=== PATIENT | female | born 1945 | race Caucasian/White ===

== ENCOUNTER 2017-01-06 20:25 | Inpatient (IN) | payer MEDICARE ==
[2017-01-06] MEDS ORDERED: IPRATROPIUM-ALBUTEROL 3 ML NEB INHALATION STA (21:11)
[2017-01-06] MEDS ORDERED: methylPREDNISolone SOD SUCCI 125 MG/2 ML VIAL IV STA (21:23)
[2017-01-06] MEDS ORDERED: SODIUM CHLORIDE 0.9% 1,000 ML IV STA (21:23)
--- NOTE | 2017-01-06 21:58 | ED ---
General Adult HPI - General Chief complaint: Shortness of Breath Stated complaint: SOB Time Seen by Provider: 01/06/17 21:21 Source: patient, family, RN notes reviewed, old records reviewed Mode of arrival: wheelchair Limitations: no limitations - History of Present Illness Initial comments: This is a 71-year-old female ER for evaluation of shortness of breath. Patient does have significant shortness of breath cough and congestion. Is a history of smoking and COPD. Patient denies any history of high blood pressure heart disease. Patient states 3 days of worsening shortness of breath cough and congestion and no improvement and at home breathing treatments. Patient denies any significant specific fevers, no chest pain. Patient's symptoms are severely worsened with exertion. She denies lower extremity edema. Denies shortness of breath when she lays down, didn't denies waking up in the middle night was source of breath. - Related Data Home Medications Medication Instructions Recorded Confirmed Albuterol Sulfate [Proair Hfa] 1 puff INHALATION RT-Q4H PRN 01/06/17 01/06/17 Ascorbic Acid [Vitamin C] 1,000 mg PO DAILY 01/06/17 01/06/17 Aspirin 325 mg PO DAILY 01/06/17 01/06/17 Calcium Carbonate [Calcium] 600 mg PO DAILY 01/06/17 01/06/17 Cyanocobalamin (Vitamin B-12) 2,000 mcg PO DAILY 01/06/17 01/06/17 [Vitamin B-12] Ipratropium-Albuterol Nebulize 3 ml INHALATION RT-QID 01/06/17 01/06/17 [Duoneb 0.5 mg-3 mg/3 ml Soln] Subsalicylate 262mg 2 tab PO BID PRN 01/06/17 01/06/17 guaiFENesin-DM 600/30MG [Mucinex 1 tab PO Q12HR PRN 01/06/17 01/06/17 Dm] Allergies Allergy/AdvReac Type Severity Reaction Status Date / Time No Known Allergies Allergy Verified 01/06/17 22:05 Review of Systems ROS Statement: Those systems with pertinent positive or pertinent negative responses have been documented in the HPI. ROS Other: All systems not noted in ROS Statement are negative. Past Medical History Past Medical History: COPD History of Any Multi-Drug Resistant Organisms: None Reported Past Surgical History: Tubal Ligation Past Psychological History: No Psychological Hx Reported Smoking Status: Former smoker Past Alcohol Use History: None Reported Past Drug Use History: None Reported General Exam Limitations: no limitations General appearance: alert, in no apparent distress, anxious Head exam: Present: atraumatic, normocephalic, normal inspection Eye exam: Present: normal appearance, PERRL, EOMI. Absent: scleral icterus, conjunctival injection, periorbital swelling ENT exam: Present: normal exam, mucous membranes moist Neck exam: Present: normal inspection. Absent: tenderness, meningismus, lymphadenopathy Respiratory exam: Present: respiratory distress, wheezes, accessory muscle use, decreased breath sounds, prolonged expiratory. Absent: rales, rhonchi, stridor Cardiovascular Exam: Present: regular rate, normal rhythm, normal heart sounds. Absent: systolic murmur, diastolic murmur, rubs, gallop, clicks GI/Abdominal exam: Present: soft, normal bowel sounds. Absent: distended, tenderness, guarding, rebound, rigid Extremities exam: Present: normal inspection, full ROM, normal capillary refill. Absent: tenderness, pedal edema, joint swelling, calf tenderness Back exam: Present: normal inspection Neurological exam: Present: alert, oriented X3, CN II-XII intact Psychiatric exam: Present: normal affect, normal mood Skin exam: Present: warm, dry, intact, normal color. Absent: rash Course Vital Signs 01/06/17 01/06/17 01/06/17 20:41 21:12 21:13 Temperature 98.2 F Pulse Rate 94 88 Respiratory 26 H 26 H Rate Blood Pressure 163/89 O2 Sat by Pulse 95 Oximetry 01/06/17 21:25 Temperature Pulse Rate 91 Respiratory Rate Blood Pressure O2 Sat by Pulse Oximetry - Reevaluation(s) Reevaluation #1: 01/06/17 22:41 Patient did have minimal improvement after first breathing treatment 01/06/17 22:41 Patient much better improvement in breathing after second breathing treatment EKG Findings - EKG Comments: EKG Findings:: EKG shows normal sinus a rate of 92, GA 122, QRS 84, QTc 450 Medical Decision Making - Medical Decision Making 71 female ear with multifactorial hypoxic respiratory failure including underlying COPD and new onset heart failure. Patient will be admitted for cardiac observation as well as continued breathing treatments and steroids - Lab Data Result diagrams: 01/06/17 20:51 01/06/17 20:51 Lab Results 01/06/17 01/06/17 01/06/17 Range/Units 20:51 20:51 20:51 WBC 6.3 (3.8-10.6) k/uL RBC 4.30 (3.80-5.40) m/uL Hgb 12.9 (11.4-16.0) gm/dL Hct 41.2 (34.0-46.0) % MCV 95.8 (80.0-100.0) fL MCH 30.1 (25.0-35.0) pg MCHC 31.4 (31.0-37.0) g/dL RDW 14.3 (11.5-15.5) % Plt Count 192 (150-450) k/uL Neutrophils % 63 % Lymphocytes % 22 % Monocytes % 9 % Eosinophils % 4 % Basophils % 0 % Neutrophils # 4.0 (1.3-7.7) k/uL Lymphocytes # 1.4 (1.0-4.8) k/uL Monocytes # 0.6 (0-1.0) k/uL Eosinophils # 0.3 (0-0.7) k/uL Basophils # 0.0 (0-0.2) k/uL Hypochromasia Slight PT 10.0 (9.0-12.0) sec INR 1.0 (<1.1) APTT 21.8 L (22.0-30.0) sec Sodium 143 (137-145) mmol/L Potassium 4.5 (3.5-5.1) mmol/L Chloride 108 H (98-107) mmol/L Carbon Dioxide 26 (22-30) mmol/L Anion Gap 9 mmol/L BUN 26 H (7-17) mg/dL Creatinine 0.90 (0.52-1.04) mg/dL Est GFR (MDRD) Af Amer >60 (>60 ml/min/1.73 sqM) Est GFR (MDRD) Non-Af >60 (>60 ml/min/1.73 sqM) Glucose 92 (74-99) mg/dL Calcium 8.7 (8.4-10.2) mg/dL Total Bilirubin 0.4 (0.2-1.3) mg/dL AST 69 H (14-36) U/L ALT 51 (9-52) U/L Alkaline Phosphatase 79 (38-126) U/L Total Protein 6.5 (6.3-8.2) g/dL Albumin 3.6 (3.5-5.0) g/dL - Radiology Data Radiology results: report reviewed (Chest x-ray does show pulmonary interstitial edema, heart failure), image reviewed Critical Care Time Critical Care Time: Yes Total Critical Care Time: 31 Disposition Clinical Impression: Congestive heart failure, Acute pulmonary edema, Acute exacerbation of chronic obstructive airways disease Disposition: ADMITTED IP TO THIS [facility] Condition: Serious Referrals: Nonstaff,Physician [Primary Care Provider] - 1-2 days
[2017-01-06 22:22] LABS: Basophils % (A) 0 %; CH 29.7; CHCM 31.2; Eosinophils # (A) 0.3 k/uL (0-0.7); Eosinophils % (A) 4 %; HCT 41.2 % (34.0-46.0); HDW 2.63; HGB 12.9 gm/dL (11.4-16.0); Hypochromasia Slight; Luc # (Auto) 0.12; Luc % (Auto) 2; Lymphocytes # (A) 1.4 k/uL (1.0-4.8); Lymphocytes % (A) 22 %; MCH 30.1 pg (25.0-35.0); MCHC 31.4 g/dL (31.0-37.0); MCV 95.8 fL (80.0-100.0); Mean Platelet Volume 8.7; Monocytes # (A) 0.6 k/uL (0-1.0); Monocytes % (A) 9 %; Neutrophils % (A) 63 %; RDW 14.3 % (11.5-15.5); WBC 6.3 k/uL (3.8-10.6); WBC (Perox) 5.85
--- NOTE | 2017-01-06 22:22 | XR ---
EXAMINATION TYPE: XR chest 2V DATE OF EXAM: 01/06/2017 10:11 PM COMPARISON: NONE HISTORY: Difficulty breathing TECHNIQUE: Frontal and lateral views of the chest are obtained. FINDINGS: There is blunting of costophrenic angles. There is pulmonary interstitial edema. Heart siz e is normal. There is slight blunting of costophrenic angles. IMPRESSION: Pulmonary interstitial edema and small pleural effusions is consistent with acute heart failure. There could be underlying pulmonary interstitial fibrosis. Atheromatous aorta.
[2017-01-06 22:23] LABS: ALT 51 U/L (9-52); AST 69 U/L (14-36); Alkaline Phosphatase 79 U/L (38-126); Anion Gap 9 mmol/L; Blood Urea Nitrogen 26 mg/dL (7-17); Calcium 8.7 mg/dL (8.4-10.2); Carbon Dioxide 26 mmol/L (22-30); Chloride 108 mmol/L (98-107); Glucose 92 mg/dL (74-99); Non-African American GFR(MDRD) >60 (>60 ml/min/1.73 sqM); Potassium 4.5 mmol/L (3.5-5.1); Sodium 143 mmol/L (137-145); Total Bilirubin 0.4 mg/dL (0.2-1.3); Total Protein 6.5 g/dL (6.3-8.2)
[2017-01-06 22:33] LABS: Partial Thromboplastin Time 21.8 sec (22.0-30.0)
[2017-01-06] MEDS ORDERED: ALBUTEROL NEBULIZED 2.5 MG/3 ML INHALATION STA ×2 (22:34→22:35)
[2017-01-06] MEDS ORDERED: AZITHROMYCIN 500 MG in SODIUM CHLORIDE 0.9% 250 ML IVPB STA (22:34)
[2017-01-06] MEDS ORDERED: IPRATROPIUM 0.5 MG/2.5 ML NEBU INHALATION STA (22:34)
[2017-01-06] MEDS ORDERED: ASPIRIN 81 MG CHEW PO STA (22:42)
[2017-01-06] MEDS ORDERED: NITROGLYCERIN SL TABS 0.4 MG TAB SUBLINGUAL PRN (22:42)
[2017-01-06 22:59] LABS: Troponin I 0.023 ng/mL (0.000-0.034)
[2017-01-06] MEDS: IPRATROPIUM-ALBUTEROL 3 ML NEB INHALATION SCH ×2 (23:01→23:06)
[2017-01-06 23:21] LABS: Creatine Kinase MB 3.2 ng/mL (0.0-2.4)
[2017-01-07] MEDS: SODIUM CHLORIDE 0.9% 1,000 ML IV SCH ×2 (00:51→22:01)
[2017-01-07] MEDS: IPRATROPIUM-ALBUTEROL 3 ML NEB INHALATION SCH ×6 (03:08→23:46)
[2017-01-07 03:29] LABS: Cholesterol 160 mg/dL (<200); HDL Cholesterol 73 mg/dL (40-60); Triglycerides 56 mg/dL (<150)
[2017-01-07 04:04] LABS: Troponin I 0.017 ng/mL (0.000-0.034)
[2017-01-07 04:13] LABS: Creatine Kinase MB 3.1 ng/mL (0.0-2.4)
[2017-01-07] MEDS: ACETAMINOPHEN TAB 325 MG TAB PO PRN ×3 (05:24→20:51)
[2017-01-07] MEDS: FUROSEMIDE 10 MG/ML 4 ML VIAL IV SCH (05:24)
[2017-01-07 06:50] LABS: Glucose,Whole Blood 200 mg/dL (75-99)
[2017-01-07] MEDS: INSULIN LISPRO (humaLOG) 300 UNIT/3 ML VIAL SQ SCH ×4 (07:06→20:52)
[2017-01-07] MEDS: methylPREDNISolone SOD SUCCI 125 MG/2 ML VIAL IV SCH ×4 (07:25→22:58)
[2017-01-07] MEDS: ASPIRIN 325 MG TAB PO SCH (08:11)
[2017-01-07] MEDS ORDERED: ENOXAPARIN 40 MG/0.4 ML SYRINGE SQ SCH (09:00)
[2017-01-07 09:35] LABS: Troponin I 0.012 ng/mL (0.000-0.034)
[2017-01-07 09:52] LABS: Creatine Kinase MB 2.7 ng/mL (0.0-2.4)
[2017-01-07 11:27] LABS: Hemoglobin A1C 6.8 % (4.2-6.1)
[2017-01-07 11:46] LABS: Glucose,Whole Blood 189 mg/dL (75-99)
--- NOTE | 2017-01-07 15:01 | ECHOF ---
Referral Reason:chf MEASUREMENTS -------- HEIGHT: 162.6 cm WEIGHT: 68.0 kg BP: 153/86 IVSd: 1.3 cm (0.6 - 1.1) LVIDd: 2.6 cm (3.9 - 5.3) LVPWd: 1.8 cm (0.6 - 1.1) IVSs: 2.1 cm LVIDs: 1.1 cm LVPWs: 2.6 cm Ao Diam: 2.4 cm (2.0 - 3.7) AV Cusp: 0.9 cm (1.5 - 2.6) LA Diam: 3.6 cm (2.7 - 3.8) MV EXCURSION: 21.171 mm (> 18.000) MV EF SLOPE: 95 mm/s (70 - 150) EPSS: 0.7 cm MV E Richard: 1.15 m/s MV DecT: 255 ms MV A Richard: 0.97 m/s MV E/A Ratio: 1.19 AV maxP.32 mmHg AV meanP.85 mmHg RAP: 5.00 mmHg RVSP: 41.94 mmHg FINDINGS -------- Sinus rhythm. This was a technically good study. There is moderate concentric left ventricular hypertrophy. Overall left ventricular systolic function is normal with, an EF between 55 - 60 %. The right ventricle is normal in size and function. The left atrium is normal in size. The right atrium is normal in size. Aortic valve is trileaflet and is severely thickened. There is fvijjykm-ru-frlvhx aortic stenosis present. Peak/mean gradient across the Aortic Valve is 65.32mmHg / 39.85mmHg. The mitral valve leaflets are mildly thickened. Mild mitral annular calcification present. Moderate mitral regurgitation is present , predominately a posteriorly directed jet. Mild tricuspid regurgitation present. The right ventricular systolic pressure, as measured by Doppler, is 41.94mmHg. Pulmonic valve appears structurally normal. The aortic root size is normal. The pericardium is normal. CONCLUSIONS -------- 1. Sinus rhythm. 2. Peak/mean gradient across the Aortic Valve is 65.32mmHg / 39.85mmHg. 3. The mitral valve leaflets are mildly thickened. 4. Mild mitral annular calcification present. 5. Moderate mitral regurgitation is present. 6. , predominately a posteriorly directed jet. 7. Mild tricuspid regurgitation present. 8. The right ventricular systolic pressure, as measured by Doppler, is 41.94mmHg. 9. Pulmonic valve appears structurally normal. 10. The aortic root size is normal. 11. The pericardium is normal. 12. This was a technically good study. 13. There is moderate concentric left ventricular hypertrophy. 14. Overall left ventricular systolic function is normal with, an EF between 55 - 60 %. 15. The right ventricle is normal in size and function. 16. The left atrium is normal in size. 17. The right atrium is normal in size. 18. Aortic valve is trileaflet and is severely thickened. 19. There is vsysnbse-fq-ruqnwl aortic stenosis present. LUMP RECEIVER: Miriam Vasquez RDCS
--- NOTE | 2017-01-07 15:39 | CONS ---
DATE OF CONSULTATION: This is a 71-year-old lady who has a past history of smoking, COPD, lives in [place]. She is here visiting her son. She came into the hospital brought in by family with complaints of increasing shortness of breath for the past 2 to 3 days, some amount of cough, but she did not have any chest discomfort. She does not have any palpitations, syncope or near syncope. She has apparently home oxygen, is a past smoker who quit nearly 2 years ago and uses home oxygen 24 hours a day. She denies any chest pain at the time of my evaluation. She is resting comfortably without symptoms. She does not have any history of hypertension, diabetes, myocardial infarction or CVA. Past history is remarkable for smoking, COPD on home oxygen. ALLERGIES: NONE. Medications include albuterol inhaler, vitamin supplements and inhaler. A chest x-ray revealed interstitial edema with small pleural effusion type pictures. Cannot exclude underlying fibrosis. Laboratory data revealed that her troponins were unremarkable and the BNP was modestly elevated at 2180. Lipid profile was normal. There was no elevation of any white count. On examination, blood pressure is 118/70, pulse rate is 80 per minute, regular. HEENT: Unremarkable. Fundus was not examined by me. Neck is supple. I cannot appreciate any significant JVD. There is no carotid bruit. Heart exam reveals S1, S2 with ejection systolic murmur at the base, second heart sound is preserved. Lungs are clear with decent air entry. Abdomen is soft, nontender. Lower extremities reveal diminished pulses. No edema. Central nervous system is normal. EKG revealed sinus mechanism, minor nonspecific ST changes. Laboratory data revealed normal troponin, borderline elevation of BNP. IMPRESSION: 1. Probable acute bronchitis. 2. I do not believe we are dealing with any significant heart failure. 3. History of chronic obstructive pulmonary disease on home oxygen. RECOMMENDATIONS: I agree with the antibiotic that has been initiated. I am suggesting that we continue the steroids and antibiotics and I will review the echocardiogram and make further recommendations. I would not recommend any aggressive diuresis at this time. I will also check a room air O2 saturation even though she is on home oxygen. I discussed my thoughts in detail with the patient and family. Thank you very much for the consult.
[2017-01-07 16:42] LABS: Glucose,Whole Blood 140 mg/dL (75-99)
--- NOTE | 2017-01-07 16:44 | HP ---
DATE OF ADMISSION: DATE OF SERVICE: 01/07/2017 CHIEF COMPLAINT: Difficulty in breathing. HISTORY OF PRESENT ILLNESS: Ms. Ramirez is a 71-year-old female with the past medical history of COPD, coming into the hospital with a chief complaint of difficulty in breathing. The patient states for the past 3 to 4 weeks she has been progressively getting short of breath and was also complaining of swelling of her lower extremities. The patient says that she has history of smoking and was recently diagnosed with COPD and she is on 2 L of home oxygen. The patient states that she required more oxygen and she turned it up to 3 L and still it was not helping her so she came into the hospital for further evaluation. Patient states that she was treated for a sinus infection recently in the first week of November with antibiotics and she was feeling better after that but for the past one week her symptoms have been progressively worsening. Patient denies having any complaints of orthopnea, PND, chest pain. She does not have any past medical history of coronary artery disease. REVIEW OF SYSTEMS: CONSTITUTIONAL: Denies having any fever, chills or rigors. RESPIRATORY: Positive for difficulty in breathing. No cough. No sputum production. GI: No abdominal pain, nausea, vomiting, or diarrhea. : No dysuria or hematuria. HEMATOLOGICAL: No history of easy bruising or recurrent infections. MUSCULOSKELETAL: No joint swelling. No joint pains or aches. ENDOCRINE: Denies having any hair loss, muscle pains or heat or cold intolerance. NEUROLOGICAL: Patient denies having any focal weakness, headache, loss of consciousness. PSYCHIATRIC: Denies having any symptoms of depression. All 13 review of systems are done and negative except for ones mentioned in the HPI. PAST MEDICAL HISTORY: Significant for COPD. PAST SURGICAL HISTORY: Tubal ligation. PAST SOCIAL HISTORY: Former smoker, quit few months back. FAMILY HISTORY: Positive for coronary artery disease, psoriasis, interstitial cystitis. ALLERGIES: No known drug allergies. PATIENT'S HOME MEDICATIONS; She is on: 1. Aspirin 325 mg p.o. daily. 2. Subsalicylate 262 mg 2 tablets p.o. b.i.d. 3. Mucinex 1 pill p.o. b.i.d. 4. Vitamin B12 supplements. 5. Ascorbic acid supplements. 6. Albuterol inhalations. 7. Calcium carbonate 600 mg p.o. daily. ON EXAMINATION: VITAL SIGNS: Temperature 97.1, heart rate 86, respiratory rate 18, blood pressure 117/71, saturating at 93% on 3 L of oxygen. GENERAL EXAMINATION: Patient appears to be in no acute distress. HEAD: Atraumatic, nontraumatic. EYES: Pupils round and reactive to light. NECK: No JVD. No thyromegaly. CARDIOVASCULAR: S1, S2 heard. No additional sounds. RESPIRATORY: Patient has decreased breath sounds in all lung zhou with few crackles at the lower lung bases. GI: Abdomen is soft, nontender. No organomegaly. Bowel sounds are positive. EXTREMITIES: No edema. No cyanosis. No clubbing. Peripheral pulses are felt. CREDIT DEPARTMENT MANAGER: Alert, awake, oriented x3. No focal neurological deficits. PSYCHIATRIC: Appropriate mood and affect. SKIN: No rash. MUSCULOSKELETAL: No joint swelling or deformity. PATIENT'S LABS: White count is 6.3, hemoglobin is 12.9, platelets of 192. Sodium 143, potassium 4.5, chloride 108, bicarb 26, BUN 26, creatinine 0.90. Troponin 0.023, 0.017. 0.01. Patient did have a chest x-ray which is positive for pulmonary interstitial edema and small pleural effusion consistent with acute heart failure. ASSESSMENT AND PLAN: 1. Shortness of breath secondary to pulmonary edema. 2. Acute exacerbation of chronic obstructive airway disease. 3. History of chronic obstructive pulmonary disease. PLAN: As the patient had chest x-ray which is consistent with pulmonary edema, we will go ahead and get an echo to see if she has any underlying heart failure. Patient to be continued on IV Lasix. Will continue with the rest of her home medication regimen and further recommendations to follow depending on the progress of the patient.
[2017-01-07 20:40] LABS: Glucose,Whole Blood 215 mg/dL (75-99)
[2017-01-08] MEDS: FUROSEMIDE 10 MG/ML 4 ML VIAL IV SCH (03:52)
[2017-01-08] MEDS: IPRATROPIUM-ALBUTEROL 3 ML NEB INHALATION SCH ×5 (03:56→21:07)
[2017-01-08] MEDS: ACETAMINOPHEN TAB 325 MG TAB PO PRN ×3 (04:09→20:20)
[2017-01-08 05:46] LABS: Glucose,Whole Blood 171 mg/dL (75-99)
[2017-01-08] MEDS: INSULIN LISPRO (humaLOG) 300 UNIT/3 ML VIAL SQ SCH ×4 (06:06→21:15)
[2017-01-08] MEDS: methylPREDNISolone SOD SUCCI 125 MG/2 ML VIAL IV SCH ×4 (06:06→23:15)
[2017-01-08 06:57] LABS: Anion Gap 7 mmol/L; Blood Urea Nitrogen 30 mg/dL (7-17); Calcium 8.9 mg/dL (8.4-10.2); Carbon Dioxide 25 mmol/L (22-30); Chloride 105 mmol/L (98-107); Glucose 180 mg/dL (74-99); Non-African American GFR(MDRD) >60 (>60 ml/min/1.73 sqM); Potassium 4.9 mmol/L (3.5-5.1); Sodium 137 mmol/L (137-145)
[2017-01-08 06:59] LABS: Basophils % (A) 0 %; CH 29.3; CHCM 31.1; Eosinophils % (A) 0 %; HCT 38.8 % (34.0-46.0); HDW 2.66; HGB 12.1 gm/dL (11.4-16.0); Hypochromasia Slight; Luc # (Auto) 0.07; Luc % (Auto) 1; Lymphocytes % (A) 8 %; MCH 29.6 pg (25.0-35.0); MCHC 31.2 g/dL (31.0-37.0); MCV 94.8 fL (80.0-100.0); Mean Platelet Volume 8.3; Monocytes # (A) 0.3 k/uL (0-1.0); Monocytes % (A) 3 %; Neutrophils # (A) 11.3 k/uL (1.3-7.7); Neutrophils % (A) 89 %; RBC 4.09 m/uL (3.80-5.40); RDW 13.9 % (11.5-15.5); WBC 12.7 k/uL (3.8-10.6); WBC (Perox) 12.72
[2017-01-08] MEDS ORDERED: RX INFO: IV CONTRAST WAS GIVEN 1 EACH MISC MISCELLANE PRN (08:08)
[2017-01-08] MEDS: ASPIRIN 325 MG TAB PO SCH (08:35)
[2017-01-08] MEDS: ENOXAPARIN 60 MG/0.6 ML SYRINGE SQ SCH ×2 (08:36→20:20)
--- NOTE | 2017-01-08 09:55 | CT ---
EXAMINATION TYPE: CT angio chest DATE OF EXAM: 01/08/2017 9:36 AM COMPARISON: Correlation radiographs 01/06/2017 HISTORY: 71-year-old female with chest pain, COPD. Rule out PE TECHNIQUE: Contiguous axial scanning of the chest performed with IV Contrast, patient injected with 1 00 ml mL of Omnipaque 350. Coronal/sagittal MIP reconstructions performed. CT DLP: 221.80 mGycm Automated exposure control for dose reduction was used. FINDINGS: The heart is upper limits of normal in size without pericardial effusion. Coronary vessel calcificati ons are present and are remarkable for coronary artery disease. Ascending aorta mildly aneurysmal at 4.0 cm. There is moderate atherosclerotic calcification througho ut the aorta with conventional arch vessel branching anatomy. Mild aneurysm lower descending thoraci c aorta 3.3 cm. Satisfactory opacification of the pulmonary arterial system without evidence for pulmonary embolus. Borderline enlarged subcarinal lymph node measures 1.5 cm. Mildly enlarged 1.3 cm right hilar lymph n ode is also noted, probably reactive. Additional scattered nonenlarged external lymph nodes. Mild biapical pleural-parenchymal scarring. There is moderate centrilobular emphysema with diffuse se ptal lines, trace pleural effusions, and patchy dependent opacity, likely atelectasis at both lung ba ses. 8 mm pulmonary nodule peripheral right lower lobe warrants follow-up. Strandy atelectasis inferior li ngula. Small hiatal hernia with moderate atherosclerotic change continuing into the upper abdominal aorta. P laque and calcification causes mild narrowing of the proximal SMA. Bones: No osseous destructive process. IMPRESSION: 1. NO EVIDENCE FOR PULMONARY EMBOLUS. 2. COPD WITH MODERATE EMPHYSEMA. 3. DIFFUSE SEPTAL LINES WITH TRACE PLEURAL EFFUSIONS. CORRELATE FOR CHF AND EARLY INTERSTITIAL EDEMA. 4. AN 8 MM RIGHT LOWER LOBE PULMONARY NODULE. RECOMMEND 6, 12, AND 24 MONTH FOLLOW-UP EXAMS TO ENSURE STABILITY. 5. MODERATE ATHEROSCLEROTIC CHANGES THROUGHOUT THE AORTA WITH MILD ANEURYSM ASCENDING AORTA (4.0 CM) AND OF THE LOWER DESCENDING THORACIC AORTA WELL (3.3 CM). 6. SMALL HIATAL HERNIA.
[2017-01-08 11:52] LABS: Glucose,Whole Blood 312 mg/dL (75-99)
[2017-01-08 11:54] LABS: Glucose,Whole Blood 256 mg/dL (75-99)
--- NOTE | 2017-01-08 13:55 | US ---
EXAMINATION TYPE: US venous doppler duplex LE DATE OF EXAM: 01/08/2017 1:29 PM COMPARISON: NONE CLINICAL HISTORY: elevated D dimer. Elevated D Dimer, pt has no leg complaints at this time SIDE PERFORMED: Bilateral TECHNIQUE: The lower extremity deep venous system is examined utilizing real time linear array sonog aviva with graded compression, doppler sonography and color-flow sonography. VESSELS IMAGED: External Iliac Vein (EIV) Common Femoral Vein Deep Femoral Vein Greater Saphenous Vein * Femoral Vein Popliteal Vein Small Saphenous Vein * Proximal Calf Veins (* superficial vessels) Right Leg: Negative for DVT Left Leg: Negative for DVT, large, non-vascular, cystic mass within left groin= 6.6 x 2.2 x 4.9 cm IMPRESSION: 1. No ultrasound evidence of deep venous thrombosis lower extremities. 2. Complex cyst like area within the left groin without color flow. Correlate with the patient's hist ory. Seroma is likely within the differential. Resolving hematoma and abscess could be considered les s likely.
--- NOTE | 2017-01-08 15:02 | PN ---
This lady has a history of she came in his shortness of breath. Clinically, there was evidence of ejection systolic murmur. Echo confirms moderate aortic stenosis. However, I do not believe her symptoms are related to aortic stenosis at this time. I ordered a d-dimer yesterday, which was elevated. She was already on Lovenox which I have increased the dose and I will obtain a CT angiography today and based on these findings, I will make further recommendations. I am concerned that her shortness of breath may probably be related to pulmonary embolism but will be clarified today. She does have what seems to be a moderate aortic stenosis with preserved systolic function and moderate pulmonary hypertension. This morning, she is actually feeling better. Vital signs are stable S1 and S2 heard normally. Ejection systolic murmur is evident. Lungs are clear. Abdomen and lower extremity exam is unchanged. We will check for pulmonary embolism and also venous Doppler to rule out any DVT. We will continue the heparin until these results come back. She can probably be discharged if these tests are negative either later this evening or tomorrow. I discussed my thoughts in detail with the patient. Thank you very much for the consult.
[2017-01-08 16:43] LABS: Glucose,Whole Blood 114 mg/dL (75-99)
[2017-01-08 21:13] LABS: Glucose,Whole Blood 355 mg/dL (75-99)
[2017-01-08 21:18] LABS: Glucose,Whole Blood 316 mg/dL (75-99)
[2017-01-08] MEDS ORDERED: IPRATROPIUM-ALBUTEROL 3 ML NEB INHALATION PRN (23:07)
[2017-01-09] MEDS: INSULIN LISPRO (humaLOG) 300 UNIT/3 ML VIAL SQ SCH ×5 (02:23→21:25)
[2017-01-09 02:30] LABS: Glucose,Whole Blood 226 mg/dL (75-99)
[2017-01-09] MEDS: SODIUM CHLORIDE 0.9% 1,000 ML IV SCH (04:45)
[2017-01-09 06:13] LABS: Glucose,Whole Blood 95 mg/dL (75-99)
[2017-01-09] MEDS: methylPREDNISolone SOD SUCCI 125 MG/2 ML VIAL IV SCH ×2 (06:19→11:57)
[2017-01-09] MEDS: FUROSEMIDE 10 MG/ML 4 ML VIAL IV SCH (06:19)
[2017-01-09 06:23] LABS: Basophils % (A) 0 %; CH 29.1; CHCM 31.4; Eosinophils % (A) 0 %; HCT 39.7 % (34.0-46.0); HDW 2.71; Hypochromasia Slight; Luc # (Auto) 0.13; Luc % (Auto) 1; Lymphocytes # (A) 1.1 k/uL (1.0-4.8); Lymphocytes % (A) 7 %; MCH 30.5 pg (25.0-35.0); MCHC 32.7 g/dL (31.0-37.0); MCV 93.4 fL (80.0-100.0); Mean Platelet Volume 8.4; Monocytes # (A) 0.6 k/uL (0-1.0); Monocytes % (A) 4 %; Neutrophils # (A) 12.5 k/uL (1.3-7.7); Neutrophils % (A) 87 %; RBC 4.25 m/uL (3.80-5.40); WBC 14.4 k/uL (3.8-10.6); WBC (Perox) 15.53
[2017-01-09 06:36] LABS: Anion Gap 7 mmol/L; Blood Urea Nitrogen 28 mg/dL (7-17); Calcium 8.8 mg/dL (8.4-10.2); Carbon Dioxide 29 mmol/L (22-30); Chloride 107 mmol/L (98-107); Glucose 92 mg/dL (74-99); Non-African American GFR(MDRD) >60 (>60 ml/min/1.73 sqM); Potassium 4.9 mmol/L (3.5-5.1); Sodium 143 mmol/L (137-145)
[2017-01-09] MEDS: IPRATROPIUM-ALBUTEROL 3 ML NEB INHALATION SCH ×4 (06:47→20:51)
--- NOTE | 2017-01-09 07:56 | PN ---
DATE OF SERVICE: 01/08/2017 INTERVAL HISTORY: Ms. Ramirez is 71-year-old female with past medical history of COPD. Comes into the hospital with the chief complaint of difficulty in breathing. She was complaining of lower extremity swelling. She is currently being treated for acute COPD exacerbation as she had lower extremity swelling work-up for congestive heart failure has been initiated. The patient had an echocardiogram and [place] which was showing an ejection fraction of 55% to 60% but there is moderate mitral regurgitation and right ventricular systolic pressure was elevated at 41.94 and there is also moderate to severe aortic stenosis present. Patient is currently on IV Lasix and breathing treatments of Solu-Medrol. Patient does still have difficulty in breathing. REVIEW OF SYSTEMS: CONSTITUTIONAL: Denies having any fever, chills, or rigors. RESPIRATORY: Persistent difficulty in breathing, no cough. GI: No abdominal pain, nausea, vomiting or diarrhea. : No dysuria or hematuria. Patient's medications have been reviewed. She is Tylenol, DuoNeb, breathing treatments , Lasix, and Solu-Medrol. Patient's vitals are temperature 97.8, heart rate between 90 to 100, respiratory rate 24, blood pressure 141/97, saturating at 93% on 2 L of oxygen. GENERAL EXAMINATION: Patient is having difficulty talking in full sentences as she just got back from the bathroom to her bed. HEAD: Atraumatic, normocephalic. NECK: No JVD, no thyromegaly. HEART: S1, S2, heard. Positive systolic murmur. RESPIRATORY: Decreased breath sounds in the lung zhou. No wheezing is appreciated. GI: Dullness over the abdomen. Bowel sounds are present. EXTREMITIES: No numbness or weakness, peripheral pulses are felt. SPACE CONTROL AGENT: Alert, awake and oriented x3. No focal neurological deficits. PSYCHIATRIC: Appropriate mood and effect SKIN: No rash. EXTREMITIES: No joint swelling or deformity. Patient's labs: White count of 12.7, hemoglobin is 12, platelets are 192. 28 BUN, creatinine of 0.80. ASSESSMENT AND PLAN: 1. Acute exacerbation of chronic obstructive pulmonary disease. 2. Moderate to severe aortic stenosis. 3. Moderate mitral regurgitation with mitral annular calcification and elevated right ventricular systolic pressure at 41.9. PLAN: Patient is on breathing treatments but has still has difficulty in breathing. She has been getting Lasix orally to optimize her treatment. Overall prognosis is poorer due to multiple chronic conditions. Further recommendations to follow depending on the progress of the patient. LINSEY
[2017-01-09] MEDS: ENOXAPARIN 60 MG/0.6 ML SYRINGE SQ SCH ×2 (08:09→21:25)
[2017-01-09] MEDS: ASPIRIN 325 MG TAB PO SCH (08:09)
[2017-01-09 10:18] VITALS: BMI 25.4
--- NOTE | 2017-01-09 12:19 | P.PN ---
Subjective Principal diagnosis: Shortness of breath This is a 71-year-old lady with history of nicotine dependence, COPD, who actually resides in [place] and is here visiting her son. She presented to the hospital with symptoms of progressively worsening shortness of breath with mild cough. Patient uses home O2. No prior history of hypertension, no diabetes, no hyperlipidemia. She was seen in consultation by Dr. Sofia Romo who felt that the patient had an exacerbation of COPD with probable acute bronchitis. An echocardiogram with Doppler study was performed which revealed a normal left ventricular systolic function, moderate mitral regurgitation, moderate to severe aortic stenosis. From cardiology's perspective, patient may be able to be discharged once cleared by primary and pulmonary, she's been instructed to follow-up with her pediatric audiologist in [place] post discharge. Objective - Vital Signs Vital signs: Vital Signs Temp 97.4 F L 01/09/17 11:40 Pulse 94 01/09/17 11:40 Resp 20 01/09/17 11:40 BP 145/75 01/09/17 11:40 Pulse Ox 94 L 01/09/17 11:40 Intake & Output 01/08/17 01/09/17 01/09/17 18:59 06:59 18:59 Intake Total 276 200 350 Output Total 560 Balance 276 200 -210 Weight 67.4 kg 67.4 kg Intake: Oral 276 200 350 Output: Urine 560 Other: Voiding Method Toilet # Voids 1 1 - Exam PHYSICAL EXAMINATION: HEENT: Head is atraumatic, normocephalic. Pupils equal, round. Neck is supple. There is no elevated jugular venous pressure. HEART EXAMINATION: Heart S1 and S2 systolic ejection murmur is heard. CHEST EXAMINATION: Lungs revealed decreased air exchange with scattered coarse wheezing throughout. ABDOMEN: Soft, nontender. Bowel sounds are heard. No organomegaly noted. EXTREMITIES: 2+ peripheral pulses with no evidence of peripheral edema and no calf tenderness noted. NEUROLOGIC patient is awake, alert and oriented -3. . - Labs CBC & Chem 7: 01/09/17 06:03 01/09/17 06:03 Labs: Abnormal Lab Results - Last 24 Hours (Table) 01/08/17 01/08/17 01/08/17 Range/Units 16:42 21:12 21:14 WBC (3.8-10.6) k/uL Neutrophils # (1.3-7.7) k/uL BUN (7-17) mg/dL POC Glucose (mg/dL) 114 H 355 H 316 H (75-99) mg/dL 01/09/17 01/09/17 01/09/17 Range/Units 02:17 06:03 06:03 WBC 14.4 H (3.8-10.6) k/uL Neutrophils # 12.5 H (1.3-7.7) k/uL BUN 28 H (7-17) mg/dL POC Glucose (mg/dL) 226 H (75-99) mg/dL Assessment and Plan (1) Acute bronchitis Status: Acute (2) Nicotine dependence Status: Acute (3) Acute exacerbation of chronic obstructive airways disease Status: Acute Plan: From cardiology's perspective, patient may be able to be discharged home today. She's been advised to follow-up with her pediatric audiologist in [place] post discharge. DNP note has been reviewed, I agree with a documented findings and plan of care. Patient was seen and examined.
[2017-01-09 12:30] LABS: Glucose,Whole Blood 251 mg/dL (75-99)
--- NOTE | 2017-01-09 13:23 | P.CNPUL ---
History of Present Illness Consult date: 01/09/17 Requesting physician: Mary Tamez Reason for consult: dyspnea, COPD Chief complaint: Shortness of breath History of present illness: This is a 71-year-old female with known history of COPD, O2 dependent, but not prednisone dependent. Patient used to smoke but she quit many years ago. Patient normally lives in [place], and she is visiting family members in [place]. She was brought into the ER on 01/07/2017, with few weeks history of increased shortness of breath, cough, congestion, and worsening swelling of her lower extremities. About a week ago, patient was treated for a sinus infection with a course of antibiotics. Chest x-ray showed small bilateral pleural effusions, CT of the chest on admission showed emphysematous changes, and it was suggestive of mild congestive heart failure changes. Mild interstitial edema and pleural effusions were noted. Her echocardiogram showed moderate severe aortic stenosis, but good LV function. At any rate patient was admitted , placed on bronchodilators, and I believe she was initially diuresed, presently , today she is doing much better, breathing a lot easier. Less cough and less wheezing less shortness of breath. No fever no chills no hemoptysis no chest pain no nausea no vomiting no abdominal pain no melena no hematemesis no dysuria and no frequency no urgency. Review of Systems 14 point review of systems were obtained, please refer to pertinent positives and negatives in HPI Past Medical History Past Medical History: COPD History of Any Multi-Drug Resistant Organisms: None Reported Past Surgical History: Tubal Ligation Past Anesthesia/Blood Transfusion Reactions: No Reported Reaction Past Psychological History: No Psychological Hx Reported Smoking Status: Former smoker Past Alcohol Use History: None Reported Past Drug Use History: None Reported - Past Family History Mother Family Medical History: Coronary Artery Disease (CAD) Father Family Medical History: Coronary Artery Disease (CAD) Son(s) Family Medical History: Diabetes Mellitus Additional Family Medical History / Comment(s): psoriasis, interstitical cystitis Sister(s) Family Medical History: Coronary Artery Disease (CAD) Medications and Allergies Home Medications Medication Instructions Recorded Confirmed Type Albuterol Sulfate [Proair Hfa] 1 puff INHALATION RT-Q4H PRN 01/06/17 01/06/17 History Ascorbic Acid [Vitamin C] 1,000 mg PO DAILY 01/06/17 01/06/17 History Aspirin 325 mg PO DAILY 01/06/17 01/06/17 History Calcium Carbonate [Calcium] 600 mg PO DAILY 01/06/17 01/06/17 History Cyanocobalamin (Vitamin B-12) 2,000 mcg PO DAILY 01/06/17 01/06/17 History [Vitamin B-12] Ipratropium-Albuterol Nebulize 3 ml INHALATION RT-QID 01/06/17 01/06/17 History [Duoneb 0.5 mg-3 mg/3 ml Soln] Subsalicylate 262mg 2 tab PO BID PRN 01/06/17 01/06/17 History guaiFENesin-DM 600/30MG [Mucinex 1 tab PO Q12HR PRN 01/06/17 01/06/17 History Dm] Allergies Allergy/AdvReac Type Severity Reaction Status Date / Time No Known Allergies Allergy Verified 01/06/17 22:05 Physical Exam Vitals: Vital Signs Temp Pulse Pulse Resp BP Pulse Ox 01/09/17 11:40 97.4 F L 94 20 145/75 94 L 01/09/17 10:53 88 01/09/17 10:45 88 01/09/17 08:00 97.2 F L 86 20 124/70 95 01/09/17 06:59 92 01/09/17 06:48 88 95 01/09/17 03:17 24 01/09/17 03:14 96.6 F L 84 24 149/88 95 01/08/17 23:36 18 01/08/17 23:35 97.6 F 89 18 124/82 96 01/08/17 21:19 90 01/08/17 21:07 88 01/08/17 20:00 97.8 F 104 H 24 141/97 93 L 01/08/17 16:28 92 01/08/17 16:16 92 01/08/17 16:00 89 18 131/76 96 Intake and Output 01/08/17 01/09/17 01/09/17 22:59 06:59 14:59 Intake Total 200 350 Output Total 560 Balance 200 -210 Intake: Oral 200 350 Output: Urine 560 Other: Voiding Method Toilet Toilet # Voids 2 1 Weight 67.4 kg 67.4 kg Patient Weight 01/10/17 06:59 Weight 67.4 kg Physical Exam: Revealed a 71-year-old female in no distress HEENT:[Neck is supple.] [No neck masses.] [No thyromegaly.] [No JVD.] Chest: [Crackles and rhonchi and wheezes noted bilaterally more so on forced expiratory maneuver..] Cardiac Exam: [Normal S1 and S2, no S3 gallop, 3/6 systolic murmur thought the precordium] Abdomen: [Soft, nontender, no megaly, no rebound, no guarding, normal bowel sounds.] Extremities: [No clubbing, trace of bipedal edema, no cyanosis.] Neurological Exam: [No focal neurologic deficit.] Results - Laboratory Findings CBC and BMP: 01/09/17 06:03 01/09/17 06:03 PT/INR, D-dimer PT 10.0 sec (9.0-12.0) 01/06/17 20:51 INR 1.0 (<1.1) 01/06/17 20:51 D-Dimer 1.34 mg/L FEU (<0.60) H 01/07/17 08:24 Abnormal lab findings: Abnormal Labs 01/07/17 01/07/17 01/07/17 02:55 02:55 06:29 WBC Neutrophils # D-Dimer BUN Glucose POC Glucose (mg/dL) 200 H Hemoglobin A1c Total Creatine Kinase 213 H CK-MB (CK-2) 3.1 H* HDL Cholesterol 73 H 01/07/17 01/07/17 01/07/17 08:24 08:24 08:24 WBC Neutrophils # D-Dimer 1.34 H BUN Glucose POC Glucose (mg/dL) Hemoglobin A1c 6.8 H Total Creatine Kinase 188 H CK-MB (CK-2) 2.7 H* HDL Cholesterol 01/07/17 01/07/17 01/07/17 11:44 16:41 20:38 WBC Neutrophils # D-Dimer BUN Glucose POC Glucose (mg/dL) 189 H 140 H 215 H Hemoglobin A1c Total Creatine Kinase CK-MB (CK-2) HDL Cholesterol 01/08/17 01/08/17 01/08/17 05:44 06:04 06:04 WBC 12.7 H Neutrophils # 11.3 H D-Dimer BUN 30 H Glucose 180 H POC Glucose (mg/dL) 171 H Hemoglobin A1c Total Creatine Kinase CK-MB (CK-2) HDL Cholesterol 01/08/17 01/08/17 01/08/17 11:50 11:52 16:42 WBC Neutrophils # D-Dimer BUN Glucose POC Glucose (mg/dL) 312 H 256 H 114 H Hemoglobin A1c Total Creatine Kinase CK-MB (CK-2) HDL Cholesterol 01/08/17 01/08/17 01/09/17 21:12 21:14 02:17 WBC Neutrophils # D-Dimer BUN Glucose POC Glucose (mg/dL) 355 H 316 H 226 H Hemoglobin A1c Total Creatine Kinase CK-MB (CK-2) HDL Cholesterol 01/09/17 01/09/17 01/09/17 06:03 06:03 11:52 WBC 14.4 H Neutrophils # 12.5 H D-Dimer BUN 28 H Glucose POC Glucose (mg/dL) 251 H Hemoglobin A1c Total Creatine Kinase CK-MB (CK-2) HDL Cholesterol - Diagnostic Findings Chest x-ray: image reviewed CT scan - chest: image reviewed (COPD, and mild congestive heart failure is suspected.) Assessment and Plan Plan: Impression: 1 acute exacerbation of chronic obstructive pulmonary disease. 2 mild congestive heart failure, most likely secondary to valvular heart disease , echocardiogram showed good LV function, but moderate severe aortic stenosis. 3 small bilateral pleural effusions and mild interstitial edema noted on the CT of the chest. 4 solitary pulmonary nodule, 8 mm in the right lower lobe, will need close follow-up, however clearly the patient is not a candidate for surgery in case if the nodule turns out to be malignant. At that point the only recommendation would be CyberKnife treatment to the nodule if it grows bigger in size. 5 small hiatal hernia as noted on CT of the chest. Recommendation: Continue present treatment plan, agree with the bronchodilators , strongly suggest gentle diuresis probably 20 mg of Lasix daily, consider discharge planning in the next 24 hours, and follow up on outpatient basis. Patient was advised to follow-up with the astronaut mission specialist in case if she goes back to [place] and should have a CT of the chest in 6 months repeated. Time with Patient: Greater than 30
[2017-01-09] MEDS: FUROSEMIDE 20 MG TAB PO SCH (15:51)
[2017-01-09 16:37] LABS: Glucose,Whole Blood 230 mg/dL (75-99)
[2017-01-09] MEDS: predniSONE 50 MG TAB PO SCH (17:11)
[2017-01-09] MEDS: SYMBICORT 160-4.5 MCG INHALER INHALATION SCH ×2 (20:51→21:10)
[2017-01-09 21:19] LABS: Glucose,Whole Blood 222 mg/dL (75-99)
--- NOTE | 2017-01-09 21:49 | PN ---
DATE OF SERVICE: 01/09/2017 INTERVAL HISTORY: Ms. Ramirez is a 71-year-old female with a past medical history of chronic obstructive pulmonary disease, coming into the hospital with a chief complaint of difficulty in breathing. She was also having some lower extremity swelling. The patient is currently being treated for acute COPD exacerbation and she is also on a Lasix. The patient had an echocardiogram done showing ejection fraction of 55% to 60% but that is moderate mitral regurgitation and aortic stenosis. The patient is showing significant improvement in her breathing. REVIEW OF SYSTEMS: CONSTITUTIONAL: Denies having any fevers, chills, or rigors. RESPIRATORY: Difficulty in breathing is improving. No cough. GI: No abdominal pain, nausea, vomiting, or diarrhea. : No dysuria or hematuria. The patient's medications have been reviewed. On examination, patient's vital signs are temperature 97.4, heart rate 88, respiratory rate 20, blood pressure 152 been 82, saturating at 95% on 2 L nasal cannula. GENERAL EXAMINATION: Patient appears to be in no acute distress. HEAD: Atraumatic, normocephalic. EYES: Pupils, round, and reactive to light. NECK: No JVD. No thyromegaly. CARDIOVASCULAR: S1, S2 heard. No additional sounds. RESPIRATORY: Diminished breath in all lung zhou. No wheezing. GI: Abdomen is soft. Bowel sounds are positive. EXTREMITIES: No edema. No cyanosis. No clubbing. Peripheral pulses are felt. SPECIAL EDUCATION ASSISTANT: Alert, awake, oriented x3. No focal neurological deficits. PSYCHIATRIC: Appropriate mood and affect. SKIN: No rash. EXTREMITIES: No joint swelling or deformity. LABS: White count of 14.4, hemoglobin is 13, platelets of 206, sodium 143, potassium 4.9, chloride 107, bicarb 29, BUN 28, creatinine 0.80. ASSESSMENT AND PLAN: 1. Acute exacerbation of chronic obstructive pulmonary disease. 2. Moderate to severe aortic stenosis. 3. Moderate mitral valve regurgitation with mitral annular calcification. 4. Elevated right ventricular systolic pressures at 41.9. PLAN: Continue the patient on Lasix. IV has been changed to p.o. The Solu-Medrol has been changed to prednisone. Overall prognosis is poor. Anticipate discharge in the next 24 hours. Further recommendations to follow depending on the progress of the patient.
[2017-01-10] MEDS: SODIUM CHLORIDE 0.9% 1,000 ML IV SCH (01:21)
[2017-01-10 02:10] LABS: Glucose,Whole Blood 152 mg/dL (75-99)
[2017-01-10] MEDS: INSULIN LISPRO (humaLOG) 300 UNIT/3 ML VIAL SQ SCH ×2 (02:31→06:37)
[2017-01-10 06:05] LABS: Glucose,Whole Blood 136 mg/dL (75-99)
[2017-01-10] MEDS: IPRATROPIUM-ALBUTEROL 3 ML NEB INHALATION SCH ×2 (07:38→11:57)
[2017-01-10] MEDS: SYMBICORT 160-4.5 MCG INHALER INHALATION SCH (07:38)
[2017-01-10 07:59] VITALS: RESP 20
[2017-01-10] MEDS: ASPIRIN 325 MG TAB PO SCH (09:09)
[2017-01-10] MEDS: predniSONE 50 MG TAB PO SCH (09:10)
[2017-01-10] MEDS: FUROSEMIDE 20 MG TAB PO SCH (09:10)
[2017-01-10] MEDS: ENOXAPARIN 60 MG/0.6 ML SYRINGE SQ SCH (09:10)
[2017-01-10 11:25] VITALS: BP 152/74; TEMP 97.1
[2017-01-10 12:02] LABS: Glucose,Whole Blood 184 mg/dL (75-99)
[2017-01-10 12:10] VITALS: PULSE 83
--- NOTE | 2017-01-10 12:14 | P.PN ---
Subjective Principal diagnosis: acute exacerbation of chronic obstructive pulmonary disease This is a 71-year-old female with known history of COPD, O2 dependent, but not prednisone dependent. Patient used to smoke but she quit many years ago. Patient normally lives in [place], and she is visiting family members in [place]. She was brought into the ER on 01/07/2017, with few weeks history of increased shortness of breath, cough, congestion, and worsening swelling of her lower extremities. About a week ago, patient was treated for a sinus infection with a course of antibiotics. Chest x-ray showed small bilateral pleural effusions, CT of the chest on admission showed emphysematous changes, and it was suggestive of mild congestive heart failure changes. Mild interstitial edema and pleural effusions were noted. Her echocardiogram showed moderate severe aortic stenosis, but good LV function. At any rate patient was admitted , placed on bronchodilators, and I believe she was initially diuresed, presently , today she is doing much better, breathing a lot easier. Less cough and less wheezing less shortness of breath. No fever no chills no hemoptysis no chest pain no nausea no vomiting no abdominal pain no melena no hematemesis no dysuria and no frequency no urgency. On 01/10/2017, patient is feeling much better, breathing a lot easier, and would like to be discharged home. Based on my physical examination and based on the clinical findings, I fully agree with discharge planning and follow-up on outpatient basis. Patient was made aware to follow-up with her locomotive mechanic apprentice or primary care physician if she goes back to [place] for follow-up on her nonspecific pulmonary right lower lobe nodule. Objective - Vital Signs Vital signs: Vital Signs Temp 97.1 F L 01/10/17 11:10 Pulse 83 01/10/17 12:10 Resp 20 01/10/17 11:10 BP 152/74 01/10/17 11:10 Pulse Ox 97 01/10/17 11:10 Intake & Output 01/09/17 01/10/17 01/10/17 18:59 06:59 18:59 Intake Total 650 600 472 Output Total 560 Balance 90 600 472 Weight 67.4 kg 66.8 kg Intake: Oral 650 600 472 Output: Urine 560 Other: # Voids 1 - Exam Physical Exam: Revealed a 71-year-old female in no distress HEENT:[Neck is supple.] [No neck masses.] [No thyromegaly.] [No JVD.] Chest: [diminished breath sounds at the bases no crackles or rhonchi or wheezes] Cardiac Exam: [Normal S1 and S2, no S3 gallop, 3/6 systolic murmur thought the precordium] Abdomen: [Soft, nontender, no megaly, no rebound, no guarding, normal bowel sounds.] Extremities: [No clubbing, trace of bipedal edema, no cyanosis.] Neurological Exam: [No focal neurologic deficit.] - Labs CBC & Chem 7: 01/09/17 06:03 01/09/17 06:03 Labs: Abnormal Lab Results - Last 24 Hours (Table) 01/09/17 01/09/17 01/09/17 Range/Units 11:52 16:34 21:18 POC Glucose (mg/dL) 251 H 230 H 222 H (75-99) mg/dL 01/10/17 01/10/17 01/10/17 Range/Units 02:08 06:03 12:01 POC Glucose (mg/dL) 152 H 136 H 184 H (75-99) mg/dL Assessment and Plan Plan: Impression: 1 acute exacerbation of chronic obstructive pulmonary disease. 2 mild congestive heart failure, most likely secondary to valvular heart disease , echocardiogram showed good LV function, but moderate severe aortic stenosis. 3 small bilateral pleural effusions and mild interstitial edema noted on the CT of the chest. 4 solitary pulmonary nodule, 8 mm in the right lower lobe, will need close follow-up, however clearly the patient is not a candidate for surgery in case if the nodule turns out to be malignant. At that point the only recommendation would be CyberKnife treatment to the nodule if it grows bigger in size. 5 small hiatal hernia as noted on CT of the chest. Recommendation: Continue present treatment plan, agree with the bronchodilators , agree with discharge planning today and follow up on outpatient basis. Time with Patient: Less than 30
--- NOTE | 2017-01-10 12:34 | P.DS ---
Providers Date of admission: 01/06/17 22:42 Attending physician: Mary Tamez Consults: 01/08/17 20:04 Consult Physician Routine Consulting Provider: Pio Limon Consult Reason/Comments: copd Do you want consulting provider notified?: Yes, Notify in am Primary care physician: Physician Nonstaff Hospital Course: this is a 8-year-old female with chronic hypoxic respiratory failure secondary to COPD came to the hospital with complaints of difficulty breathing patient was also noted to have some significant lower extremity edema. Echocardiogram was done which showed moderate to severe aortic stenosis and moderate MR patient was noted to have an ejection fraction around 55-60%. Diastolic heart failure was the attributed to patient's fluid overloaded state on admission. Patient was noted to have increased difficulty breathing and was apparently wheezing on admission hence and exacerbation of COPD versus suspected patient was started on steroids and was given breathing treatments. A chest x-ray did not reveal any acute infiltrate. patient was able to ambulate on 2 L of supplemental oxygen without any significant difficulty. Discharge diagnosis #1 acute exacerbation of COPD per graph #2 moderate to severe aortic stenosis however asymptomatic at this time #3 moderate mitral regurgitation #4 moderate pulmonary hypertension secondary to above #5 chronic hypoxic respiratory failure with an acute component secondary to #1 on this admission On the day of discharge lungs air movement is appreciated no wheezing or rhonchi present Heart a systolic murmur appreciated no lower extremity edema abdomen is soft nontender no organomegaly Oral cavity no thrush noted Again patient is encouraged to ambulate is discharged home in stable condition. Medications were reconciled Follow up with cardiology and pulmonology Patient Condition at Discharge: Serious Plan - Discharge Summary New Discharge Prescriptions: Furosemide [Lasix] 20 mg PO DAILY #30 tab predniSONE 0 mg PO DIRECTED #30 tab Discharge Medication List Albuterol Sulfate [Proair Hfa] 1 puff INHALATION RT-Q4H PRN 01/06/17 [History] Ascorbic Acid [Vitamin C] 1,000 mg PO DAILY 01/06/17 [History] Aspirin 325 mg PO DAILY 01/06/17 [History] Calcium Carbonate [Calcium] 600 mg PO DAILY 01/06/17 [History] Cyanocobalamin (Vitamin B-12) [Vitamin B-12] 2,000 mcg PO DAILY 01/06/17 [ History] Ipratropium-Albuterol Nebulize [Duoneb 0.5 mg-3 mg/3 ml Soln] 3 ml INHALATION RT -QID 01/06/17 [History] Subsalicylate 262mg 2 tab PO BID PRN 01/06/17 [History] guaiFENesin-DM 600/30MG [Mucinex Dm] 1 tab PO Q12HR PRN 01/06/17 [History] Furosemide [Lasix] 20 mg PO DAILY #30 tab 01/10/17 [Rx] predniSONE 0 mg PO DIRECTED #30 tab 01/10/17 [Rx] Follow up Appointment(s)/Referral(s): Nonstaff,Physician [Primary Care Provider] - 1-2 days Ria Marques MD [STAFF PHYSICIAN] - 1 Week Aguila Murphy MD [STAFF PHYSICIAN] - 1 Week Elizabeth Romo MD [STAFF PHYSICIAN] - 1 Week Patient Instructions/Handouts: Low Sodium Diet (DC) Discharge Disposition: HOME SELF-CARE
== END 2017-01-10 14:27 | disposition home or self-care (01) | DRG 190 ==
LOC: EC 20:25 → 6SEL 22:42
PROVIDERS: ADMIT Hospitalist; ATTEND Hospitalist
DX: J44.1 Chronic obstructive pulmonary disease with (acute) exacerbation (principal); J96.21 Acute and chronic respiratory failure with hypoxia; I50.32 Chronic diastolic (congestive) heart failure; I27.2 Other secondary pulmonary hypertension; E11.9 Type 2 diabetes mellitus without complications; I08.0 Rheumatic disorders of both mitral and aortic valves; F17.200 Nicotine dependence, unspecified, uncomplicated; K44.9 Diaphragmatic hernia without obstruction or gangrene; Z79.82 Long term (current) use of aspirin; Z82.49 Family history of ischemic heart disease and other diseases of the circulatory system; Z83.3 Family history of diabetes mellitus; Z99.81 Dependence on supplemental oxygen; Z79.899 Other long term (current) drug therapy
CPT/HCPCS: 36415; 71020; 71275; 80048; 80053; 80061; 82550; 82553; 83036; 83880; 84484; 85025; 85379; 85610; 85730; 93005; 93306; 93970; 94640; 94760; 96361; 96374; 99291

== ENCOUNTER → 2017-03-22 | Outpatient (CLI) | payer MEDICARE ==
[2017-03-22 12:02] LABS: CH 29.6; CHCM 29.6; HCT 46.7 % (34.0-46.0); HDW 2.35; HGB 13.9 gm/dL (11.4-16.0); Hypochromasia Marked; MCH 29.9 pg (25.0-35.0); MCHC 29.8 g/dL (31.0-37.0); MCV 100.4 fL (80.0-100.0); Macrocytosis Slight; Mean Platelet Volume 9.2; RBC 4.65 m/uL (3.80-5.40); RDW 13.8 % (11.5-15.5); WBC 6.4 k/uL (3.8-10.6)
[2017-03-22 12:24] LABS: Anion Gap 10 mmol/L; Blood Urea Nitrogen 17 mg/dL (7-17); Calcium 9.1 mg/dL (8.4-10.2); Carbon Dioxide 25 mmol/L (22-30); Chloride 106 mmol/L (98-107); Glucose 100 mg/dL (74-99); Non-African American GFR(MDRD) >60 (>60 ml/min/1.73 sqM); Potassium 4.3 mmol/L (3.5-5.1); Sodium 141 mmol/L (137-145)
== END ==
LOC: LABWHC1 11:45
PROVIDERS: ATTEND Internal Medicine Interventional Cardiology
DX: I35.0 Nonrheumatic aortic (valve) stenosis (principal); I10 Essential (primary) hypertension
CPT/HCPCS: 36415; 80048; 85027

== ENCOUNTER → 2017-04-17 | Outpatient (CLI) | payer MEDICARE ==
--- NOTE | 2017-04-17 09:18 | US ---
EXAMINATION TYPE: US gallbladder DATE OF EXAM: 04/17/2017 COMPARISON: NONE CLINICAL HISTORY: R10 ABD PAIN. NPO, Midline pain EXAM MEASUREMENTS: Liver Length: 19.7 cm Gallbladder Wall: 0.2 cm CHD: 0.2 cm Right Kidney: 9.6 x 4.5 x 4.0 cm Pancreas: Tail obscured by overlying bowel gas, main pancreatic duct 1.5 mm. Slightly echogenic. Liver: Enlarged. Gallbladder: Multiple mobile stones. Evidence for sonographic La's sign: neg CHD: wnl Right Kidney: Medial anechoic lesion at hilum = 2.0 x 2.0 x 1.3 cm Incidental finding: Mid aortic dilation = 2.3 cm with internal septation seen. Patent. IMPRESSION: 1. Cholelithiasis. 2. Hepatomegaly. 3. Right renal cyst.
== END | disposition home or self-care (01) ==
LOC: RADUSWWP 08:01
PROVIDERS: ATTEND Family Medicine
DX: K80.20 Calculus of gallbladder without cholecystitis without obstruction (principal); R16.0 Hepatomegaly, not elsewhere classified; N28.1 Cyst of kidney, acquired
CPT/HCPCS: 76705